=== PATIENT | female | born 1990 | race Hispanic/Latino ===

== ENCOUNTER 2017-10-31 18:33 | Outpatient (CLI) | payer MEDICAID ==
[2017-10-31 19:10] VITALS: BP 138/64
== END 2017-10-31 21:51 | disposition home or self-care (01) ==
LOC: TRG 18:33
PROVIDERS: ATTEND Obstetrics & Gynecology
DX: O47.1 False labor at or after 37 completed weeks of gestation (principal); O99.333 Smoking (tobacco) complicating pregnancy, third trimester; Z3A.38 38 weeks gestation of pregnancy
CPT/HCPCS: 59025